=== PATIENT | female | born 1960 | race Caucasian/White ===

== ENCOUNTER 2019-11-01 09:03 | Outpatient (CLI) | payer OTHER, SELFPAY ==
--- NOTE | 2019-11-01 | EST_ITS ---
Patient Info Name: Disha King Age: 59 years : 1960 Gender: Female Ht: 62 in Wt: 94 lbs BSA: 1.36 m2 Heart Rhythm: Sinus Rhythm Exam Date: 11/01/2019 9:22 AM Exam Location: [facility] Stress Patient Status: Outpatient Admit Date: 11/01/2019 Staff Ordering Physician: LaneyZuleyma Attending Provider: Laney, Zuleyma MICHAEL Exercise Technologist: Yenni Ariza RDCS Exam Type: CA stress test treadmill Study Info Indications R07.9 - Chest pain, unspecified A treadmill exercise stress test was performed. Summary 1. Nondiagnostic due to sub maximal stress. No ST changes meeting strict criteria for myocardial ischemia at workload achieved. 2. No arrhythmias were observed during the examination. 3. Poor exercise tolerance for age. 4. Sub maximal stress test achieving 71% of age predicted maximum heart rate. Consider repeat stress test with alternative modality to prove sensitivity and specificity for myocardial ischemia. Recommendations * Recommend additional imaging studies per clinical evaluation. Protocol: [facility] Stress ECG Details Stage: REST Duration (min): 10 min : 41 sec Speed (mph): 0.0 Grade (%): 0 HR (bpm): 81 SBP (mmHg): 147 DBP (mmHg): 93 METS: --- Stage: REST Duration (min): 21 min : 21 sec Speed (mph): 0.0 Grade (%): 0 HR (bpm): 70 SBP (mmHg): 147 DBP (mmHg): 93 METS: --- Stage: STAGE 1 Duration (min): 1 min : 0 sec Speed (mph): 1.7 Grade (%): 10 HR (bpm): 96 SBP (mmHg): 147 DBP (mmHg): 93 METS: --- Stage: STAGE 1 Duration (min): 2 min : 0 sec Speed (mph): 1.7 Grade (%): 10 HR (bpm): 103 SBP (mmHg): 147 DBP (mmHg): 93 METS: --- Stage: STAGE 1 Duration (min): 3 min : 0 sec Speed (mph): 1.7 Grade (%): 10 HR (bpm): 109 SBP (mmHg): 168 DBP (mmHg): 80 METS: --- Stage: STAGE 2 Duration (min): 0 min : 10 sec Speed (mph): 2.5 Grade (%): 12 HR (bpm): 109 SBP (mmHg): 168 DBP (mmHg): 80 METS: --- Stage: RECOVERY Duration (min): 0 min : 49 sec Speed (mph): 0.0 Grade (%): 0 HR (bpm): 109 SBP (mmHg): 168 DBP (mmHg): 80 METS: --- Stage: RECOVERY Duration (min): 1 min : 49 sec Speed (mph): 0.0 Grade (%): 0 HR (bpm): 82 SBP (mmHg): 166 DBP (mmHg): 84 METS: --- Stage: RECOVERY Duration (min): 2 min : 49 sec Speed (mph): 0.0 Grade (%): 0 HR (bpm): 73 SBP (mmHg): 140 DBP (mmHg): 87 METS: --- Stage: RECOVERY Duration (min): 3 min : 49 sec Speed (mph): 0.0 Grade (%): 0 HR (bpm): 80 SBP (mmHg): 140 DBP (mmHg): 87 METS: --- Stage: RECOVERY Duration (min): 4 min : 48 sec Speed (mph): 0.0 Grade (%): 0 HR (bpm): 70 SBP (mmHg): 137 DBP (mmHg): 86 METS: --- Rest HR: 70 bpm Peak HR: 116 bpm Rest Sys BP: 147 mmHg Peak Sys BP: 168 mmHg Max Pred HR: 162 bpm % Max Pred HR: 72 %
--- NOTE | 2019-11-01 | ECG_ITS ---
Measurements Intervals [place] Rate: 66 P: 81 [place]: 163 QRS: 75 QRSD: 91 T: 66 QT: 384 QTc: 404 Interpretive Statements SINUS RHYTHM DELAYED PRECORDIAL R/S TRANSITION BORDERLINE ECG Electronically Signed On 11-01-2019 9:53:03 CDT by Ricardo Valencia D.O.
== END 2019-11-01 09:04 | disposition home or self-care (01) ==
LOC: ANHCARD 09:05
PROVIDERS: PCP Physician Assistant; Visit Provider Physician Assistant
DX: R07.9 Chest pain, unspecified (principal)
CPT/HCPCS: 93005; 93017

== ENCOUNTER 2019-11-08 09:48 | Outpatient (CLI) | payer OTHER, SELFPAY ==
--- NOTE | ~2019-11-08 | DEXA_ITS ---
Bone Density Report Name: Disha King Age: 59 Sex: Female Ethnicity: White Date of : 1960 Indication: postmenopausal; parental hip fracture; prior fracture; asthma or emphysema; Referring Provider: Laney, Zuleyma Oglesby Study: Bone densitometry was performed. Exam Date: November 08, 2019 Accession number: [id number] Bone Density: Region BMD T-score Z-score Classification AP Spine (L1-L4) 0.812 -2.1 -0.8 Osteopenia Femoral Neck (Left) 0.534 -2.8 -1.6 Osteoporosis Total Hip (Left) 0.678 -2.2 -1.3 Osteopenia Total Hip Bilateral Avg 0.675 -2.2 -1.4 Osteopenia Femoral Neck (Right) 0.520 -3.0 -1.8 Osteoporosis Total Hip (Right) 0.672 -2.2 -1.4 Osteopenia World Health Organization criteria for BMD impression classify patients as: Normal (T-score at or above -1.0), Osteopenia (T-score between -1.0 and -2.5), or Osteoporosis (T-score at or below -2.5). 10-year Fracture Risk: FRAX not reported because: Some T-score for Spine Total or Hip Total or Femoral Neck at or below -2.5 Clinical Information Provided by Patient: Has had a low trauma fracture Parent has had a hip fracture Smokes Has the following medical conditions: Asthma or Emphysema Patient maximum height was 62 Menopause Age: 51 Drinks caffeinated beverages Onset of menses at age 18 Number of children 2 Impression: The patient has established osteoporosis, based on the Right Femoral Neck T-score and the existence of a prior fracture. The patient has risk factors, including: parental hip fracture, smoking, previous fracture. Discussion: HIGH RISK OF FRACTURE. BONE DENSITY IS UNDESIRABLY LOW AT ONE OR MORE SKELETAL SITES, CONSISTENT WITH POSTMENOPAUSAL OSTEOPOROSIS. This patient's lowest T-score, in a patient who has previously fractured, meets the World Health Organization's (WHO) criteria for severe osteoporosis. In untreated patients, the risk of osteoporotic fracture increases approximately two-fold for each 1.0 SD decrease in T-score. Low bone density is not the only risk factor for fracture; also consider factors such as patient's age, frailty or poor health, risk of falling, risk of injury, previous osteoporotic fracture, family history of osteoporosis, cigarette smoking, low body weight, etc. Not everyone with low bone mineral density has osteoporosis; osteomalacia and other metabolic bone disorders should also be considered. Patients who have osteoporosis should be evaluated for specific diseases and conditions (secondary causes) that may cause or contribute to bone loss. The [place] Association [employer] Clinical Endocrinologists (AACE) and National Osteoporosis Foundation (NOF) recommend pharmacologic intervention for all postmenopausal women whose T-score is in this range. The patient should follow a healthful lifestyle (good nutrition with adequate calcium and
== END 2019-11-08 09:49 | disposition home or self-care (01) ==
PROVIDERS: PCP Physician Assistant; Visit Provider Physician Assistant
DX: M85.89 Other specified disorders of bone density and structure, multiple sites (principal); M81.0 Age-related osteoporosis without current pathological fracture
CPT/HCPCS: 77080

== ENCOUNTER 2019-11-15 12:49 | Outpatient (CLI) | payer OTHER, SELFPAY ==
--- NOTE | ~2019-11-15 | MR_ITS ---
EXAMINATION: MR cervical spine wo con DATE: 11/15/2019 14:03 INDICATION: Ataxia. TECHNIQUE: Magnetic resonance imaging (MRI) of the cervical spine was performed without intravenous c ontrast. Sequences included sagittal T2-weighted FSE, sagittal STIR FSE, sagittal T1-weighted FSE, ax ial MERGE, and axial T2-weighted FSE. COMPARISON: None FINDINGS: There is hypolordosis of cervical spine. Vertebral body heights are normal. There is a 5 mm lesion of increased T2-weighted signal intensity in C6 vertebral body, likely an atypical hemangioma . There is mildly decreased disc height at C4-C5, moderately decreased disc height at C5-C6, and mild ly decreased disc height at C6-C7. The spinal cord signal intensity is normal. The following disc lev els are specifically discussed: C2-C3: The disc does not extend beyond the endplate margin. There is no uncovertebral joint osteoarth ritis. There is severe left facet joint osteoarthritis. There is mild left neural foraminal stenosis. There is no central canal stenosis. C3-C4: The disc does not extend beyond the endplate margin. There is mild bilateral uncovertebral dante nt osteoarthritis. There is mild left facet joint osteoarthritis. There is no neural foraminal stenos is. There is no central canal stenosis. C4-C5: There is a central extrusion. There is mild bilateral uncovertebral joint osteoarthritis. Ther e is mild left facet joint osteoarthritis. There is no neural foraminal stenosis. There is mild centr al canal stenosis with ventral indentation of the spinal cord. C5-C6: The disc is bulging with superimposed right central extrusion. There is severe right and moder ate left uncovertebral joint osteoarthritis. There is no facet joint osteoarthritis. There is mild ri ght neural foraminal stenosis. There is moderate central canal stenosis with ventral and dorsal inden tation of the spinal cord. C6-C7: The disc is bulging. There is severe bilateral uncovertebral joint osteoarthritis. There is no facet joint osteoarthritis. There is mild right and moderate left neural foraminal stenosis. There i s moderate central canal stenosis with ventral and dorsal indentation of the spinal cord. C7-T1: The disc is bulging with superimposed central extrusion. There is mild left uncovertebral join t osteoarthritis. There is no facet joint osteoarthritis. There is mild left neural foraminal stenosi s. There is mild central canal stenosis. IMPRESSION: 1. Moderate cervical spondylosis. Reviewed, dictated and finalized at location A.
== END 2019-11-15 12:50 | disposition home or self-care (01) ==
LOC: ANHIMG 12:50
PROVIDERS: PCP Physician Assistant; Visit Provider Psychiatry & Neurology Neurology
DX: R27.0 Ataxia, unspecified (principal); M47.812 Spondylosis without myelopathy or radiculopathy, cervical region
CPT/HCPCS: 72141

== ENCOUNTER 2020-01-11 12:31 | Outpatient (CLI) | payer OTHER, SELFPAY ==
--- NOTE | 2020-01-11 13:00 | ECHO_ITS ---
Patient Info Name: Disha King Age: 59 years : 1960 Gender: Female Ht: 62 in Wt: 94 lbs BSA: 1.36 m2 HR: 62 bpm BP: 136 / 72 mmHg Technical Quality: Good Exam Date: 01/11/2020 1:21 PM Exam Location: [facility] Pulmonary Patient Status: Outpatient Admit Date: 01/11/2020 Staff Ordering Physician: Ricardo Valencia DO Clinical Services Specialist: Angel Jimenez RDCS, RT Attending Provider: Ricardo Valencia DO Referring Physician: Erik RUELAS; Exam Type: CA echo doppler color flow Study Info Indications R07.89 - Other chest pain Complete two-dimensional, color flow and Doppler transthoracic echocardiogram is performed. Strain analysis performed. Summary 1. Complete two-dimensional, color flow and Doppler transthoracic echocardiogram is performed. 2. Left ventricular chamber dimension is normal. 3. Left ventricular systolic function is normal, estimated at 60-65%. 4. The left ventricular diastolic function is normal. 5. E/e' 7 is not elevated. 6. Global longitudinal strain is normal at -19.5%. 7. The mitral valve has mildly calcified annulus. 8. There is trace tricuspid valve regurgitation. 9. No pulmonary hypertension, estimated pulmonary arterial systolic pressure is 27 mmHg. 10. Dilated inferior vena cava with >50% collapse upon inspiration consistent with normal right atrial pressure, 10 mmHg. Left Ventricle E/e' 7 is not elevated. Global longitudinal strain is normal at -19.5%. Left ventricular chamber dimension is normal. Left ventricular systolic function is normal, estimated at 60-65%. The left ventricular diastolic function is normal. Right Ventricle Right ventricular chamber dimension is normal. Right ventricular systolic function is normal. Left Atria Left atrial chamber dimension is normal. Right Atria Right atrial chamber dimension is normal. Aortic Valve The aortic valve is trileaflet. There is no aortic valve stenosis. There is no aortic valve regurgitation. Pulmonic Valve There is no pulmonic regurgitation. Mitral Valve The mitral valve has mildly calcified annulus. There is no mitral valve stenosis. There is no mitral valve regurgitation. Tricuspid Valve There is trace tricuspid valve regurgitation. No pulmonary hypertension, estimated pulmonary arterial systolic pressure is 27 mmHg. Pericardium/Pleural There is no pericardial effusion. Inferior Vena Cava Dilated inferior vena cava with >50% collapse upon inspiration consistent with normal right atrial pressure, 10 mmHg. Aorta The aortic root size at the sinus of Valsalva is normal. Left Ventricular Outflow Tract Name Value Normal LVOT 2D LVOT Diameter 1.9 cm LVOT Doppler LVOT Peak Gradient 3 mmHg LVOT Mean Gradient 2 mmHg LVOT VTI 19 cm LVOT VTI/AV VTI Ratio 0.8 LVOT Stroke Volume 53 ml LVOT CO 3.7 l/min LVOT CI 2.7 l/min/m2 Mitral Valve
[2020-01-11 13:08] LABS: Alanine Aminotransferase 13 U/L (4-35); Albumin Level 4.1 g/dL (3.5-5.1); Alkaline Phosphatase 80 U/L (38-126); Anion Gap 3 mmol/L (8-16); Aspartate Amino Transferase 27 U/L (14-36); Bilirubin,Total 0.4 mg/dL (0.2-1.3); Blood Urea Nitrogen 15 mg/dL (7-17); Carbon Dioxide 33 mmol/L (22-30); Chloride 104 mmol/L (98-107); Cholesterol 165 mg/dL (0-200); Estimated Glomerular Filt Rate > 60; Glucose 87 mg/dL (65-105); HDL Direct 65 mg/dL; Potassium 4.4 mmol/L (3.4-5.0); Sodium 140 mmol/L (137-145); Triglycerides 60 mg/dL (<150)
[2020-01-11 13:18] LABS: LDL Cholesterol Direct 82 mg/dL
== END 2020-01-11 12:32 | disposition home or self-care (01) ==
LOC: ANHCARD 12:33
PROVIDERS: PCP Physician Assistant; Visit Provider Internal Medicine Cardiovascular Disease
DX: D73.89 Other diseases of spleen (principal)
CPT/HCPCS: 36415; 80053; 80061; 93306

== ENCOUNTER 2020-02-22 09:14 | Outpatient (CLI) | payer OTHER, SELFPAY ==
--- NOTE | ~2020-02-22 | US_ITS ---
EXAMINATION: US abdomen limited DATE: 02/22/2020 09:46 INDICATION: Splenic masses. TECHNIQUE: Multiple grayscale and Doppler ultrasound images of the abdomen were obtained. COMPARISON: None FINDINGS: The visualized portions of the head, body, and tail of the pancreas are normal. The liver i s normal without focal lesion. There is normal flow in main portal vein. The gallbladder is normal in size. No gallstones or gallbladder wall thickening. There is no sonographic Jimenez sign. The common duct is normal and measures 2 mm. The spleen is normal in size. No splenic masses identified. IMPRESSION: 1. Normal spleen. Note that ultrasound is less sensitive than CT or MRI for splenic masses. Reviewed, dictated and finalized at location B. NING FEEDER IMPRESSION: 1. Normal spleen. Note that ultrasound is less sensitive than CT or MRI for spl enic masses.
== END 2020-02-22 09:15 | disposition home or self-care (01) ==
PROVIDERS: PCP Physician Assistant; Visit Provider Physician Assistant
DX: D73.89 Other diseases of spleen (principal)
CPT/HCPCS: 76705

== ENCOUNTER 2020-05-15 09:37 | Outpatient (CLI) | payer OTHER, SELFPAY ==
--- NOTE | ~2020-05-15 | US_ITS ---
EXAMINATION: US carotid duplex BI DATE: 05/15/2020 10:06 INDICATION: Right carotid bruit TECHNIQUE: Grayscale, color Doppler, and pulsed Doppler images of the cervical carotid arteries were obtained. The degree of vessel stenosis is placed in one of the following categories: normal, <50%, 5 0-69%, >=70% but less than near-occlusion, near-occlusion, or total occlusion. Note that percent sten osis relative to normal distal artery lumen diameter is indirectly measured from velocity measurement s as described by Aguilar, et al. Radiology 2003; 229:340-346. COMPARISON: None. FINDINGS: RIGHT: The right common carotid artery (CCA) peak systolic velocity (PSV) is 75 cm/s. The right internal car otid artery (ICA) PSV is 71 cm/s. The right ICA end-diastolic velocity (EDV) is 20 cm/s. The right IC A/CCA PSV ratio is 1.0. Grayscale and color Doppler images yield an estimate of <50% diameter reducti on from small amount of plaque in the ICA. The external carotid artery (ECA) PSV is 99 cm/s. There is antegrade flow in the right vertebral artery. LEFT: The left CCA PSV is 89 cm/s. The left ICA PSV is 87 cm/s. The left ICA EDV is 26 cm/s. The left ICA/C CA PSV ratio is 1.0. Grayscale and color Doppler images yield an estimate of <50% diameter reduction from minimal plaque in the ICA. The ECA PSV is 92 cm/s. There is antegrade flow in the left vertebral artery. IMPRESSION: 1. <50% stenosis. Small amount of plaque in the right internal carotid artery. 2. <50% stenosis from minimal plaque in the left internal carotid artery. Reviewed, dictated and finalized at location B. BLENDER
== END 2020-05-15 09:38 | disposition home or self-care (01) ==
LOC: ANHIMG 09:38
PROVIDERS: PCP Physician Assistant; Visit Provider Internal Medicine Cardiovascular Disease
DX: R09.89 Other specified symptoms and signs involving the circulatory and respiratory systems (principal); I65.23 Occlusion and stenosis of bilateral carotid arteries
CPT/HCPCS: 93880

== ENCOUNTER 2020-05-23 13:19 | Outpatient (CLI) | payer OTHER, SELFPAY ==
--- NOTE | ~2020-05-23 | XR_ITS ---
EXAMINATION: XR thoracic spine 3V EXAM DATE: 05/23/2020 13:48 INDICATION: Pain in RT arm, low back pain and thoracic pain . Fall, injury, initial encounter. TECHNIQUE: Frontal and lateral projections of the thoracic spine as well as lateral swimmers projecti on of the upper thoracic spine for interpretation. There is no prior study for comparison. FINDINGS: Mild mid and lower thoracic disc disease. The vertebral body heights are maintained. There are no acute fractures identified. The vertebral bodies are aligned in the AP dimension. Paraspinal s oft tissue is unremarkable. IMPRESSION: 1. No acute thoracic findings. 2. Mild spondylosis. Reviewed, dictated and finalized at location B. UITWARE BRUSHER
--- NOTE | ~2020-05-23 | XR_ITS ---
EXAMINATION: XR forearm RT 2V EXAM DATE: 05/23/2020 13:48 INDICATION: Pain in RT arm, low back pain and thoracic pain. Fall, initial encounter. TECHNIQUE: Right forearm frontal and lateral projections obtained and reviewed. There is no prior st udy for comparison. FINDINGS: There are no acute right forearm fractures or dislocations identified. There is no subcuta neous gas. The soft tissue is unremarkable. There are no radiopaque foreign bodies. No elbow join t effusion. IMPRESSION: 1. Unremarkable XR forearm RT 2V exam. Reviewed, dictated and finalized at location B. AGE COLLECTOR
--- NOTE | ~2020-05-23 | XR_ITS ---
EXAMINATION: XR lumbar spine 2-3V EXAM DATE: 05/23/2020 13:48 INDICATION: Pain in RT arm, low back pain and thoracic pain . Fall, injury, initial encounter. TECHNIQUE: Lumber spine frontal, lateral, lateral L5-S1 projections for interpretation. There is no prior study for comparison. FINDINGS: There is mild diffuse lumbar disc disease with small endplate osteophytes. There is modera te lumbar facet arthropathy. 2 mm degenerative retrolisthesis L1 on L2 and L2 on L3. The vertebral naima dies are otherwise aligned. No spondylolysis. There are no acute fractures identified. Sacrum, sacroi liac joints, sacral arcuate lines are intact. Mild lumbar levoscoliosis. Paraspinal soft tissue is un remarkable. Calcifications in the pelvis are believed to be phleboliths. IMPRESSION: 1. No acute lumbar findings. 2. Moderate facet arthropathy, mild disc disease. 3. Mild levoscoliosis. Reviewed, dictated and finalized at location B. F SOFTWARE ENGINEER
== END 2020-05-23 13:20 | disposition home or self-care (01) ==
LOC: ANHIMG 13:25
PROVIDERS: PCP Physician Assistant; Visit Provider Physician Assistant
DX: M54.5 Low back pain (principal); M54.6 Pain in thoracic spine; M47.896 Other spondylosis, lumbar region; M51.9 Unspecified thoracic, thoracolumbar and lumbosacral intervertebral disc disorder; M41.86 Other forms of scoliosis, lumbar region; M47.814 Spondylosis without myelopathy or radiculopathy, thoracic region
CPT/HCPCS: 72072; 72100; 73090

== ENCOUNTER 2020-07-28 10:50 | Emergency (ER) | payer OTHER, SELFPAY ==
[2020-07-28] VITALS (17 sets, daily range): BP systolic 115–144; BP diastolic 65–96; PULSE 61–86; RESP 12–20; TEMP 36.6; O2SAT 98–100
--- NOTE | ~2020-07-28 | XR_ITS ---
EXAMINATION: XR chest 1V DATE: 07/28/2020 11:36 INDICATION: Dizziness. TECHNIQUE: A single frontal view of the chest was obtained. COMPARISON: Chest 2 views 05/26/2013 FINDINGS: There are lucencies in the lungs, consistent with emphysema. No pleural effusion or pneumot horax. The heart size is normal. IMPRESSION: 1. Emphysema. Reviewed, dictated and finalized at location A. IMPRESSION: 1. Emphysema.
--- NOTE | ~2020-07-28 | CT_ITS ---
EXAMINATION: CT brain wo con DATE: 07/28/2020 11:30 INDICATION: Dizziness. Right ear pain. TECHNIQUE: Computed tomography (CT) of the head was performed without intravenous contrast. The mA wa s adjusted according to patient size. Iterative reconstruction technique was employed. The dose-lengt h product was 605.33 mGy-cm. COMPARISON: None FINDINGS: There is no intracranial hemorrhage, acute infarction, or abnormal intracranial mass lesion . The ventricles are normal in size. There is mild mucosal thickening in the paranasal sinuses. There is a right otomastoid effusion. The orbits are normal. IMPRESSION: 1. Normal brain. 2. Right otomastoid effusion. Reviewed, dictated and finalized at location A.
--- NOTE | 2020-07-28 11:00 | ECG_ITS ---
Measurements Intervals [place] Rate: 62 P: 81 CA: 152 QRS: 79 QRSD: 100 T: 63 QT: 400 QTc: 406 Interpretive Statements SINUS RHYTHM DELAYED PRECORDIAL R/S TRANSITION LOW VOLTAGE- LIMB LEADS BORDERLINE ECG Electronically Signed On 07-28-2020 13:44:06 CDT by Ricardo Valencia D.O.
--- NOTE | 2020-07-28 11:41 | ED.DIZZY ---
HPI - Dizziness General Chief Complaint: Dizziness Stated Complaint: DIZZY,NAUSEA Time Seen by Provider: 07/28/20 10:55 Source: RN notes reviewed History of Present Illness HPI Narrative: Patient presents emergency department from home via EMS for dizziness. Patient states that symptoms been ongoing for the past 2 years but had worsened today when she had gotten up states she had a bedroom and gotten up and was dizzy and called EMS. she states that she has had ongoing issues with the right ear effusion and has seen ENT before and passes required drainage she states the dizziness coincides with when her ear effusion started and she states she will intermittently have drainage of pus from the right ear she states dizziness is worse with sitting up she states she has been given meclizine for this before in the past which makes her symptoms worse she denies any fevers or chills vision changes numbness or tingling in the extremities chest pain shortness of breath abdominal pain or any other symptoms. States that she supposed began CT scan of her head as an outpatient but has not been set up for this yet by her PCP Related Data Home Medications Medication Instructions Recorded Confirmed albuterol sulfate 2.5 mg INHALATION Q6H 11/08/19 05/06/20 albuterol sulfate 90 mcg/actuation 1 inhalation INHALATION BID gm 11/08/19 05/06/20 aerosol inhaler budesonide-formoterol HFA 160 2 puff INHALATION Q12H 11/08/19 05/06/20 mcg-4.5 mcg/actuation aerosol inhaler capsaicin 0.1 % topical cream 1 applic TOPICAL TID 11/08/19 05/06/20 guaifenesin 200 mg tablet 200 mg PO QID 11/08/19 05/06/20 ipratropium bromide 21 mcg (0.03 2 spray NASAL BID 11/08/19 05/06/20 %) nasal spray montelukast 10 mg tablet 10 mg PO DAILY 11/08/19 05/06/20 nicotine 10 mg inhalation cartridge 1 inhalation INHALATION 4-6XD PRN 11/08/19 05/06/20 nitrofurantoin 100 mg PO Q12H 11/08/19 05/06/20 monohydrate/macrocrystals 100 mg capsule omeprazole 20 mg capsule,delayed 20 mg PO DAILY 11/08/19 05/06/20 release sodium chloride 0.65 % nasal spray 1 spray NASAL BID PRN 11/08/19 05/06/20 aerosol umeclidinium 62.5 mcg/actuation 1 inhalation INHALATION DAILY 11/08/19 05/06/20 blister powder for inhalation zonisamide 100 mg capsule 100 mg PO DAILY 11/08/19 05/06/20 Allergies Allergy/AdvReac Type Severity Reaction Status Date / Time aspirin Allergy Unknown RASH Verified 05/06/20 09:23 gabapentin Allergy Unknown Verified 07/28/20 10:59 meclizine Allergy Unresponsiv Verified 07/28/20 11:44 e onion AdvReac Severe Hives Verified 05/06/20 09:23 Review of Systems Review of Systems: Narrative: Gen.: Denies fevers or chills Eyes: Denies eye pain or visual change ENT: See HPI Respiratory: Denies shortness of breath or cough CV: Denies chest pain or palpitations GI: Denies abdominal pain nausea, emesis or diarrhea Musculoskeletal: Denies back pain or muscle pain Neuro: Denies numbness, tingling, weakness or focal weakness, reports dizziness Skin: Denies rash Except as documented, all other systems reviewed and negative [facility] Past Medical History Medical History Abnormal weight loss Anxiety Anxiety disorder Chest pain Chronic gastritis Chronic obstructive lung disease Cocaine abuse GERD (gastroesophageal reflux disease) Multiple joint pain Neuropathy Opioid abuse Smoker Spasm Tobacco dependence syndrome Unexplained weight loss Upper abdominal pain Surgical History Surgical History (Updated 11/08/19 @ 09:08 by Silvana See MA) History of endometrial ablation History of nasal surgery History of placement of ear tubes Family History Family History (Updated 11/08/19 @ 09:13 by Silvana See MA) Mother , motorcycle accident ( age 30) No problems noted. Father Malignant neoplasm of lung Social History Social History (Reviewed 07/28/20 @ 13:43 by
[2020-07-28] MEDS: SODIUM CHLORIDE 0.9% IV 1,000 ML 999 ML IV CONT (11:43)
[2020-07-28 12:12] LABS: Basophils Absolute Auto 0.1 K/mm3 (0.0-0.1); Basophils Percent Auto 0.6 % (0.2-1.2); Eosinophils Absolute Auto 0.1 K/mm3 (0-0.3); Eosinophils Percent Auto 1.6 % (0-4.4); Hematocrit 41.9 % (37.0-47.0); Immature Granulocyte Absolute 0.02 K/mm3 (0.00-0.031); Immature Granulocyte Percent A 0.2 % (0-0.5); Lymphocytes Absolute Auto 1.32 K/mm3 (0.9-3.2); Lymphocytes Percent Auto 16.3 % (18.3-44.2); Mean Corpuscular HGB Conc 33.4 g/dl (32-36); Mean Corpuscular Hemoglobin 29.3 pg (26-34); Mean Corpuscular Volume 87.7 fl (80-100); Mean Platelet Volume 11.3 fl (7.4-10.4); Monocytes Absolute Auto 0.8 K/mm3 (0.1-0.6); Monocytes Percent Auto 9.3 % (2.6-8.5); Neutrophils Absolute Auto 5.8 K/mm3 (1.3-6.7); Platelet Count Result 201 k/mm3 (150-375); Red Blood Count 4.78 M/mm3 (4.2-5.4); Red Cell Distribution Width 12.9 % (11.5-14.5); White Blood Count 8.1 K/mm3 (4.5-10.0)
[2020-07-28 12:15] LABS: Add Urine Microscopic? YES; Appearance Urine Clear (Clear); Bilirubin Urine Negative (Negative); Blood Urine 1+ (Negative); Color Urine Yellow (Yellow); Glucose Urine UA Negative (Negative); Ketones Urine Negative (Negative); Leukocyte Esterase Ur Negative LEU/UL (Negative); Mucus Urine Few /lpf; Nitrate Urine Negative (Negative); Protein Urine 1+ mg/dL (Negative); RBC Urine 0-2 /hpf (0-2); Specific Grav Ur 1.018 (1.001-1.035); Squamous Epithelial Cell Urine Rare /hpf (Few); Urobilinogen Urine Negative mg/dL (<2.0); WBC Urine 0-3 /hpf
[2020-07-28 12:23] LABS: Alanine Aminotransferase 9 U/L (4-35); Albumin Level 3.6 g/dL (3.5-5.1); Alkaline Phosphatase 69 U/L (38-126); Anion Gap 2 mmol/L (8-16); Aspartate Amino Transferase 19 U/L (14-36); Bilirubin,Total 0.1 mg/dL (0.2-1.3); Blood Urea Nitrogen 22 mg/dL (7-17); Calcium 8.3 mg/dL (8.4-10.2); Carbon Dioxide 31 mmol/L (22-30); Chloride 107 mmol/L (98-107); Estimated CRCL calculation 52 ml/min; Estimated Glomerular Filt Rate > 60; Glucose 82 mg/dL (65-105); Sodium 140 mmol/L (137-145)
[2020-07-28 12:34] LABS: Troponin I < 0.012 ng/mL (0.000-0.034)
--- NOTE | 2020-07-28 13:02 | WPDCN ---
Assessment and Plan Assessment and plan (1) Otorrhea, right ear: Code(s): H92.11 - Otorrhea, right ear Status: Acute Assessment and Plan: the patient should use b.i.d. to t.i.d. antibiotic drops in the right EAC. She should keep her ears dry. If she will tolerate it she should be discharged on oral antibiotic as well given the odd constellation of symptoms as well as root of take probiotic during this time. The patient should follow up with me as soon as possible for further evaluation and treatment. I discussed this plan with the patient and she agreed. I am unsure the etiology of her vertigo we can better elucidate this at the follow-up appointment. HPI Data of Consult Date/Time: 07/28/20 13:02 51-year-old female significant otologic history right-sided tympanoplasty years ago history of ear tubes as well presents with she reports near constant vertigo. CT head clear per read from a neurologic standpoint. Regarding the ears the left has a scant mastoid effusion some hyperdense material on the eardrum in the canal the right-sided difficult to visualize the TM all the bones appear there are no effusions patient presents for further evaluation treatment. Reports that oral antibiotics do not help the otorrhea which she has on the right side. Patient also reports that she has hearing loss but was unable to afford amplification. Primary Care Provider: Zuleyma Davison, PA Consult Narrative Narrative: Disha King is a 59 year old female Review of Systems Constitutional: Constitutional: Denies fatigue, Denies fever(s) and Denies lethargy Eyes: Eyes: Denies blurry vision and Denies change in vision ENT: Reports as per HPI Cardiovascular: Cardiovascular: Denies chest pain Respiratory: Respiratory: Denies cough Endocrine: Endocrine: Denies fatigue Hematologic/Lymphatic: Hematologic/Lymphatic: Denies easy bleeding, Denies easy bruising and Denies lymphadenopathy Allergic/Immunologic: Allergic/Immunologic: Denies seasonal rhinorrhea [facility] Past Medical History Medical History (Updated 07/28/20 @ 13:04 by Royer James MD) Abnormal weight loss Anxiety Anxiety disorder Chest pain Chronic gastritis Chronic obstructive lung disease Cocaine abuse GERD (gastroesophageal reflux disease) Multiple joint pain Neuropathy Opioid abuse Smoker Spasm Tobacco dependence syndrome Unexplained weight loss Upper abdominal pain Surgical History Surgical History (Updated 11/08/19 @ 09:08 by Silvana See MA) History of endometrial ablation History of nasal surgery History of placement of ear tubes Family History Family History (Updated 11/08/19 @ 09:13 by Silvana See MA) Mother , motorcycle accident ( age 30) No problems noted. Father Malignant neoplasm of lung Social History Social History (Updated 11/08/19 @ 09:18 by Silvana See MA) Smoking packs per day: 0.5 Smoking cigarettes per day: 10.0 Years smoked: 38 Smoking pack-years: 19.00 Smoking status: Current every day smoker Tobacco type: cigarettes Alcohol intake: former Substance use: former Substance use type: crack/cocaine and opiates Additional living arrangements comments: with others Meds Home Medications and Allergies Home Medications Medication Instructions Recorded Confirmed Type albuterol sulfate 2.5 mg INHALATION Q6H 11/08/19 05/06/20 History albuterol sulfate 90 mcg/actuation 1 inhalation INHALATION BID gm 11/08/19 05/06/20 History aerosol inhaler budesonide-formoterol HFA 160 2 puff INHALATION Q12H 11/08/19 05/06/20 History mcg-4.5 mcg/actuation aerosol inhaler capsaicin 0.1 % topical cream 1 applic TOPICAL TID 11/08/19 05/06/20 History guaifenesin 200 mg tablet 200 mg PO QID 11/08/19 05/06/20 History ipratropium bromide 21 mcg (0.03 2 spray NASAL BID 11/08/19 05/06/20 History %) nasal spray montelukast 10 mg tablet 1
[2020-07-28] MEDS: ALPRAZolam (*CRX) 0.25 MG TABLET 0.5 MG PO (13:17)
[2020-07-28] MEDS: AMOXICILLIN/CLAVULANATE K 875-125 MG TAB 1 TABLET PO (13:30)
== END 2020-07-28 14:06 | disposition home or self-care (01) ==
PROVIDERS: Emergency Provider Emergency Medicine; PCP Physician Assistant
DX: H66.91 Otitis media, unspecified, right ear (principal); F17.210 Nicotine dependence, cigarettes, uncomplicated; J44.9 Chronic obstructive pulmonary disease, unspecified; K21.9 Gastro-esophageal reflux disease without esophagitis; G62.9 Polyneuropathy, unspecified
CPT/HCPCS: 36415; 70450; 71045; 80053; 81001; 84484; 85025; 93005; 96360; 99284; A9270; J7030

== ENCOUNTER 2020-09-23 11:58 | Emergency (ER) | payer OTHER, SELFPAY ==
--- NOTE | ~2020-09-23 | CT_ITS ---
EXAMINATION: CTA BRAIN/CAROTID DATE: 09/23/2020 13:37 INDICATION: Dizziness TECHNIQUE: Computed tomographic angiography (CTA) of the head and neck was performed with 100 mL Omni paque-350 intravenous contrast. Multiplanar reconstructions and maximum intensity projection 3D-recon structions of the carotid arteries and of the intracranial arteries were created by the technologist on a separate workstation. Precontrast CT of the head was also obtained. Automated exposure control and iterative reconstruction technique were employed.The dose-length product was 1557.39 mGy-cm. COMPARISON: Head CT dated 07/28/2020 FINDINGS: Carotid arteries: No evident plaque with 0% stenosis of the right carotid bulb relative to normal distal artery lumen d iameter (NASCET criteria). There is a small amount of calcific plaque but also with 0% stenosis of th e left carotid bulb relative to normal distal artery lumen diameter. Thoracic aorta is normal in michell brittney. Small amount of atherosclerotic plaque without hemodynamically significant stenosis at the origi n of the great vessels arising from the arch. The left vertebral artery is dominant. Severe emphysema . Cervical soft tissues are unremarkable. Head: No acute intracranial hemorrhage, acute infarction or abnormal extra axial fluid collection. Ventricl es are normal and symmetric. No mass/mass effect. Small right mastoid effusion. Mild mucosal thickeni ng in the left sphenoid sinus. Small mucous retention cyst within a pneumatized kerry deanna. The orb its are normal. Intracranial arteries: There is no hemodynamically significant stenosis in the vertebral, basilar and internal carotid arter ies. Left vertebral artery is dominant. There are no aneurysms identified. Both A1 and P1 segments a re patent. Cerebral arterial arborization appears symmetric. IMPRESSION: 1. 0% stenosis of the left and right carotid bulbs relative to normal distal artery lumen diameter (N ASCET criteria). 2. Normal brain. No acute intracranial process. 3. Normal cerebral CT angiogram. 4. Persistent small right mastoid effusion. Reviewed, dictated and finalized at location A. IMPRESSION: 1. 0% stenosis of the left and right carotid bulbs relative to normal distal ar cathy lumen diameter (NASCET criteria). 2. Normal brain. No acute intracranial process. 3. Normal cerebral CT angiogram. 4. Persistent small right mastoid effusion.
[2020-09-23 12:01] VITALS: BP 136/78; PULSE 59; RESP 20; O2SAT 100
--- NOTE | 2020-09-23 12:08 | ECG_ITS ---
Measurements Intervals [place] Rate: 53 P: 82 WA: 151 QRS: 81 QRSD: 84 T: 64 QT: 396 QTc: 372 Interpretive Statements SINUS BRADYCARDIA BASELINE ARTIFACT- I, III, AVR, AVL, AVF BORDERLINE ECG Electronically Signed On 09-24-2020 7:34:11 CDT by Ricardo Valencia D.O.
[2020-09-23 12:17] LABS: Basophils Absolute Auto 0.1 K/mm3 (0.0-0.1); Eosinophils Absolute Auto 0.2 K/mm3 (0-0.3); Eosinophils Percent Auto 2.4 % (0-4.4); Hematocrit 45.2 % (37.0-47.0); Hemoglobin 14.7 g/dL (12.0-15.0); Immature Granulocyte Absolute 0.02 K/mm3 (0.00-0.031); Immature Granulocyte Percent A 0.3 % (0-0.5); Lymphocytes Absolute Auto 2.12 K/mm3 (0.9-3.2); Lymphocytes Percent Auto 30.3 % (18.3-44.2); Mean Corpuscular HGB Conc 32.5 g/dl (32-36); Mean Corpuscular Hemoglobin 29.1 pg (26-34); Mean Corpuscular Volume 89.5 fl (80-100); Monocytes Absolute Auto 0.9 K/mm3 (0.1-0.6); Monocytes Percent Auto 12.3 % (2.6-8.5); Neutrophils Absolute Auto 3.8 K/mm3 (1.3-6.7); Neutrophils Percent Auto 53.7 % (45.5-73.1); Platelet Count Result 238 k/mm3 (150-375); Red Blood Count 5.05 M/mm3 (4.2-5.4); Red Cell Distribution Width 13.3 % (11.5-14.5)
[2020-09-23 12:21] VITALS: BP 147/82; PULSE 60
[2020-09-23 12:22] VITALS: BP 167/86; PULSE 65
[2020-09-23 12:28] LABS: Anion Gap 8 mmol/L (8-16); Blood Urea Nitrogen 20 mg/dL (7-17); Carbon Dioxide 28 mmol/L (22-30); Chloride 102 mmol/L (98-107); Estimated CRCL calculation 58 ml/min; Estimated Glomerular Filt Rate > 60; Glucose 99 mg/dL (65-105); Potassium 4.2 mmol/L (3.4-5.0); Sodium 138 mmol/L (137-145)
--- NOTE | 2020-09-23 12:36 | ED.GENADULT ---
HPI - General Adult General Chief complaint: Dizziness Stated complaint: dizziness Time Seen by Provider: 09/23/20 12:07 Source: patient History of Present Illness HPI narrative: Patient is 60 y/o female complaining of intense dizziness starting 2 days ago. She describes her dizziness as a room spinning sensation. She states that laying on left side seems to make her symptoms worse and laying on right side seems to alleviating it somewhat. She also has some nausea, but no vomiting. She has no focal weakness or numbness. She had similar episodes of these dizzy spells in the past. Related Data Home Medications Medication Instructions Recorded Confirmed albuterol sulfate 2.5 mg INHALATION Q6H 11/08/19 08/08/20 albuterol sulfate 90 mcg/actuation 1 inhalation INHALATION BID gm 11/08/19 08/08/20 aerosol inhaler budesonide-formoterol HFA 160 2 puff INHALATION Q12H 11/08/19 08/08/20 mcg-4.5 mcg/actuation aerosol inhaler capsaicin 0.1 % topical cream 1 applic TOPICAL TID 11/08/19 08/08/20 guaifenesin 200 mg tablet 200 mg PO QID 11/08/19 08/08/20 ipratropium bromide 21 mcg (0.03 2 spray NASAL BID 11/08/19 08/08/20 %) nasal spray montelukast 10 mg tablet 10 mg PO DAILY 11/08/19 08/08/20 nicotine 10 mg inhalation cartridge 1 inhalation INHALATION 4-6XD PRN 11/08/19 08/08/20 nitrofurantoin 100 mg PO Q12H 11/08/19 08/08/20 monohydrate/macrocrystals 100 mg capsule omeprazole 20 mg capsule,delayed 20 mg PO DAILY 11/08/19 08/08/20 release sodium chloride 0.65 % nasal spray 1 spray NASAL BID PRN 11/08/19 08/08/20 aerosol umeclidinium 62.5 mcg/actuation 1 inhalation INHALATION DAILY 11/08/19 08/08/20 blister powder for inhalation zonisamide 100 mg capsule 100 mg PO DAILY 11/08/19 08/08/20 Allergies Allergy/AdvReac Type Severity Reaction Status Date / Time aspirin Allergy Unknown RASH Verified 09/23/20 12:45 gabapentin Allergy Unknown Verified 09/23/20 12:45 meclizine Allergy Unresponsiv Verified 09/23/20 12:45 e onion AdvReac Severe Hives Verified 09/23/20 12:45 Review of Systems Constitutional: Constitutional: Denies chills, Denies fever(s), Denies headache(s) and Denies weakness Eyes: Eyes: Denies blurry vision ENT: Denies headache(s) and Denies neck pain Cardiovascular: Cardiovascular: Denies chest pain and Denies dyspnea Respiratory: Respiratory: Denies cough and Denies dyspnea Gastrointestinal: Gastrointestinal: Denies abdominal pain, Denies diarrhea, Denies nausea and Denies vomiting Genitourinary: Genitourinary: Denies hematuria and Denies dysuria Musculoskeletal: Musculoskeletal: Denies back pain and Denies neck pain Neurologic: Reports dizziness, Denies headache(s) and Denies weakness PMFSH Past Medical History Medical History Abnormal weight loss Anxiety Anxiety disorder Chest pain Chronic gastritis Chronic obstructive lung disease Cocaine abuse GERD (gastroesophageal reflux disease) Multiple joint pain Neuropathy Opioid abuse Smoker Spasm Tobacco dependence syndrome Unexplained weight loss Upper abdominal pain Surgical History Surgical History History of endometrial ablation History of nasal surgery History of placement of ear tubes Family History Family History Mother , motorcycle accident ( age 30) No problems noted. Father Malignant neoplasm of lung Social History Social History Smoking packs per day: 0.5 Smoking cigarettes per day: 10.0 Years smoked: 38 Smoking pack-years: 19.00 Smoking status: Current every day smoker Tobacco type: cigarettes Alcohol intake: former Substance use: former Substance use type: crack/cocaine and opiates Additional living arrangements comments: with others Exam Cons
[2020-09-23 13:18] LABS: Add Urine Microscopic? NO; Appearance Urine Clear (Clear); Bilirubin Urine Negative (Negative); Blood Urine Negative (Negative); Color Urine Straw (Yellow); Glucose Urine UA Negative (Negative); Ketones Urine Negative (Negative); Leukocyte Esterase Ur Negative LEU/UL (Negative); Nitrate Urine Negative (Negative); Protein Urine Negative (Negative); Specific Grav Ur 1.006 (1.001-1.035); Urobilinogen Urine Negative mg/dL (<2.0)
[2020-09-23 15:09] VITALS: BP 125/77; PULSE 77; RESP 16; O2SAT 100
== END 2020-09-23 15:13 | disposition home or self-care (01) ==
PROVIDERS: Emergency Provider Emergency Medicine; PCP Physician Assistant
DX: R42 Dizziness and giddiness (principal); F17.210 Nicotine dependence, cigarettes, uncomplicated; R41.9 Unspecified symptoms and signs involving cognitive functions and awareness; K21.9 Gastro-esophageal reflux disease without esophagitis
CPT/HCPCS: 36415; 70496; 70498; 80048; 81003; 85025; 93005; 99284; Q9967

== ENCOUNTER 2020-09-25 12:40 | Outpatient (CLI) | payer OTHER, SELFPAY ==
--- NOTE | ~2020-09-25 | MR_ITS ---
EXAMINATION: MR brain/brain stem wo con DATE: 09/25/2020 15:00 INDICATION: Dizziness. Polyneuropathy. TECHNIQUE: Magnetic resonance imaging (MRI) of the brain and brainstem was performed without intraven ous contrast. Sequences included sagittal and axial T1-weighted FSE, axial diffusion-weighted FS EPI, axial T2*-weighted GRE, axial T2-weighted FLAIR Propeller, and axial T2-weighted Propeller. Postcont rast sequences included axial and coronal T1-weighted FSE. Apparent diffusion coefficient (ADC) maps were created. COMPARISON: Head CT 09/23/2020 FINDINGS: There are scattered areas of nonspecific increased T2-weighted signal intensity in the cere bral white matter, which is within normal limits for the patient's age. There is no intracranial hemo rrhage, acute infarction, or abnormal intracranial mass lesion. The ventricles are normal in size. Th e paranasal sinuses are clear. The orbits are normal. There is a small right mastoid effusion. IMPRESSION: 1. Normal aging brain. Reviewed, dictated and finalized at location A. IMPRESSION: 1. Normal aging brain.
--- NOTE | 2020-09-27 15:35 | WPDNEUROLOGY ---
Neurology EEG Report General Information Date of Study: 09/25/20 TEST eeg DIAGNOSIS Seizures CONDITION OF RECORDING awake drowsy and sleep EEG NUMBER [id number] CLINICAL HISTORY patient reported that she has been having dizziness for several years EEG DESCRIPTION basic resting occipital frequency consists of large amount of well-organized medium voltage 9 to 11 hertz per 2nd alpha admixed with low-voltage 15 to 18 hertz per 2nd beta. Bilateral symmetrical sleep activity seen during sleep hyperventilation not done photic stimulation produced normal drive. Non paroxysmal. Nonfocal. Nonlateralizing. IMPRESSION Normal recall
== END 2020-09-25 12:41 | disposition home or self-care (01) ==
LOC: ANHIMG 12:42
PROVIDERS: PCP Physician Assistant; Visit Provider Psychiatry & Neurology Neurology
DX: G62.9 Polyneuropathy, unspecified (principal); D49.9 Neoplasm of unspecified behavior of unspecified site; R56.9 Unspecified convulsions
CPT/HCPCS: 70551; 95816

== ENCOUNTER 2021-02-19 13:11 | Outpatient (CLI) | payer OTHER, SELFPAY | END 2021-02-19 13:12 | disposition home or self-care (01) | LOC: ANHAUDIO 13:12 | PROVIDERS: PCP Physician Assistant; Visit Provider Otolaryngology | DX: H72.91 Unspecified perforation of tympanic membrane, right ear (principal); H90.6 Mixed conductive and sensorineural hearing loss, bilateral | CPT/HCPCS: 92557; 92567 ==

== ENCOUNTER 2021-06-26 14:48 | Outpatient (CLI) | payer OTHER, SELFPAY ==
--- NOTE | 2021-06-28 17:08 | WPDPFTINT ---
PFT Procedure Performed PFT Procedure Performed Spirometry with Pre/Post Bronchodilator Plethysmography (Lung Vol) Diffusing Cap (DLCO) Flow Vol Loop PFT Interpretation DOS: 06/26/2021 REQUESTING: Nas Dawson MD REASON FOR TESTING: Centrilobular emphysema PULMONARY FUNCTION TESTS Results are reliable and reproducible. Spirometry: Pre-bronchodilator FEV1 is 1.18 L, 50% predicted. Bronchodilator FVC is 84% predicted. The FEV1/FVC ratio is reduced 47% predicted consistent with airflow obstruction. There is no change after bronchodilator administration. Lung volumes: The total lung capacity is increased at 130%, 6.12 L, mild hyperinflation. The residual volume is severely increased 196% consistent with severe air trapping. RV/TLC is severely increased, 59%. There is increased airway resistance. Diffusion: DLCO 52%, moderately decreased. This does not correct for alveolar volume, DLCO/VA 64%. Flow volume loop: Scooping of the expiratory limb consistent with airflow obstruction. IMPRESSION: Moderately severe obstructive ventilatory impairment with mild hyperinflation, severe air trapping, and moderate diffusion impairment. There is no change with bronchodilator administration. This pattern is consistent with emphysema. Lack of response to bronchodilator should not preclude use if clinically indicated. Rebekah Larsen MD
--- NOTE | 2021-06-28 17:14 | WPDSIXMINUTE ---
Six Minute Walk Procedure Procedure Performed Pulmonary Stress Test (6 min walk) Six Minute Walk Six Minute Walk: DATE OF SERVICE: 06/26/2021 REQUESTING: Nas Dawson MD REASON FOR TESTING: Centrilobular emphysema SIX MINUTE WALK This test was performed according to ATS guidelines. The patient was on room air. The initial saturation was 96% and the pulse was 83. The patient walked for 6 minutes without stopping to rest. There was no significant desaturation. The lowest saturation during this event is 93%. The highest pulse is 116. At the end of recovery the pulse was 94 and saturation was 96%. Distance walked was 487.6 meters, 1600 feet. IMPRESSION: This is a normal walk study. There is no indication for supplemental oxygen with exertion.
== END 2021-06-26 14:49 | disposition home or self-care (01) ==
LOC: ANHPFT 14:49
PROVIDERS: PCP Physician Assistant; Visit Provider Student in an Organized Health Care Education/Training Program
DX: J43.2 Centrilobular emphysema (principal)
CPT/HCPCS: 94060; 94618; 94726; 94729

== ENCOUNTER 2021-07-16 10:02 | Outpatient (CLI) | payer OTHER, SELFPAY | END 2021-07-16 10:03 | disposition home or self-care (01) | LOC: ANHAUDIO 10:03 | PROVIDERS: PCP Physician Assistant; Visit Provider Otolaryngology | DX: H91.93 Unspecified hearing loss, bilateral (principal); R42 Dizziness and giddiness; H72.91 Unspecified perforation of tympanic membrane, right ear; H69.83 Other specified disorders of Eustachian tube, bilateral | CPT/HCPCS: 92557; 92567 ==